=== PATIENT | male | born 1955 | race Caucasian/White ===

== ENCOUNTER → 2019-06-20 | Outpatient (REF) | payer BC ==
[2019-06-20 17:13] LABS: ALBUMIN 3.9 GM/DL (3.2-5.2); ALT/SGPT 27 U/L (12-78); BILIRUBIN,TOTAL 1.5 MG/DL (0.2-1.0); BLOOD UREA NITROGEN 7 MG/DL (7-18); CALCIUM LEVEL 9.4 MG/DL (8.8-10.2); CARBON DIOXIDE LEVEL 31 MEQ/L (21-32); CHLORIDE LEVEL 92 MEQ/L (98-107); CREATININE FOR GFR 0.76 MG/DL (0.70-1.30); GLOMERULAR FILTRATION RATE > 60.0 (>49); GLUCOSE, FASTING 106 MG/DL (70-100); POTASSIUM SERUM 4.3 MEQ/L (3.5-5.1); SODIUM LEVEL 130 MEQ/L (136-145); TOTAL PROTEIN 7.7 GM/DL (6.4-8.2)
[2019-06-20 17:22] LABS: BASO % 0.8 % (0.0-1.0); EOS # 0.2 10^3/uL (0.0-0.5); HEMATOCRIT 33.3 % (42.0-52.0); HEMOGLOBIN 11.8 g/dl (13.5-17.5); LYMPH # 1.2 10^3/uL (1.5-5.0); LYMPH % 23.2 % (24.0-44.0); MEAN CORPUSCULAR HEMOGLOBIN 34.9 pg (27.0-33.0); MEAN CORPUSCULAR HGB CONC 35.4 g/dl (32.0-36.5); MEAN CORPUSCULAR VOLUME 98.5 fl (80.0-96.0); MONO # 0.8 10^3/uL (0.0-0.8); MONO % 15.6 % (0.0-5.0); NEUTROPHILS # 2.9 10^3/uL (1.5-8.5); PLATELET COUNT, AUTOMATED 240 10^3/uL (150-450); RED BLOOD COUNT 3.38 10^6/uL (4.30-6.10); WHITE BLOOD COUNT 5.1 10^3/uL (4.0-10.0)
== END ==
LOC: M SFHCCLAY 11:03
PROVIDERS: ATTEND Family Medicine
DX: E87.1 Hypo-osmolality and hyponatremia (principal)

== ENCOUNTER → 2019-11-13 | Outpatient (CLI) | payer MEDICARE, BC ==
--- NOTE | 2019-11-13 14:44 | REP ---
Right ribs for views: There is a nondisplaced fracture of the posterior arch of the right tenth rib. PA chest: There are no comparisons. There is no pneumothorax, hemothorax or pulmonary contusion. There are numerous small round calcified nodules compatible with granulomas disease. Lung frye otherwise clear. Cardiac size is normal. The bassem, mediastinum, skeletal structures are unremarkable. Impression: Granulomatous disease, otherwise negative PA chest. Electronically Signed by Hossein Galo MD 11/13/2019 02:35 P
== END ==
LOC: M WUC 14:12
PROVIDERS: ATTEND Physician Assistant
DX: S20.221A Contusion of right back wall of thorax, initial encounter (principal); X58.XXXA Exposure to other specified factors, initial encounter; Y92.89 Other specified places as the place of occurrence of the external cause; Y93.9 Activity, unspecified; Y99.9 Unspecified external cause status

== ENCOUNTER → 2020-05-31 | Outpatient (CLI) | payer MEDICARE, BC ==
[2020-05-31 10:41] LABS: BASO % 0.6 % (0.0-1.0); EOS # 0.1 10^3/uL (0.0-0.5); EOS % 1.4 % (0.0-3.0); HEMATOCRIT 39.5 % (42.0-52.0); LYMPH % 13.2 % (24.0-44.0); MEAN CORPUSCULAR HEMOGLOBIN 33.5 pg (27.0-33.0); MEAN CORPUSCULAR HGB CONC 35.4 g/dl (32.0-36.5); MEAN CORPUSCULAR VOLUME 94.5 fl (80.0-96.0); MONO % 14.2 % (0.0-5.0); NEUTROPHILS % 69.9 % (36.0-66.0); PLATELET COUNT, AUTOMATED 190 10^3/uL (150-450); RED BLOOD COUNT 4.18 10^6/uL (4.30-6.10); WHITE BLOOD COUNT 7.2 10^3/uL (4.0-10.0)
[2020-05-31 11:11] LABS: ALBUMIN 3.9 GM/DL (3.2-5.2); ALT/SGPT 20 U/L (12-78); BILIRUBIN,TOTAL 1.2 MG/DL (0.2-1.0); BLOOD UREA NITROGEN 8 MG/DL (7-18); CALCIUM LEVEL 9.1 MG/DL (8.8-10.2); CARBON DIOXIDE LEVEL 31 MEQ/L (21-32); CHLORIDE LEVEL 92 MEQ/L (98-107); CREATININE FOR GFR 0.86 MG/DL (0.70-1.30); GLOMERULAR FILTRATION RATE > 60.0 (>49); GLUCOSE, FASTING 116 MG/DL (70-100); MAGNESIUM LEVEL 2.1 MG/DL (1.8-2.4); POTASSIUM SERUM 4.6 MEQ/L (3.5-5.1); SODIUM LEVEL 127 MEQ/L (136-145); TOTAL PROTEIN 8.1 GM/DL (6.4-8.2)
== END ==
LOC: M WUC 09:31
PROVIDERS: ATTEND Physician Assistant
DX: R42 Dizziness and giddiness (principal)

== ENCOUNTER → 2020-08-09 | Outpatient (REF) | payer MEDICARE, BC ==
[2020-08-09 16:37] LABS: BLOOD UREA NITROGEN 8 MG/DL (7-18); CALCIUM LEVEL 9.1 MG/DL (8.8-10.2); CARBON DIOXIDE LEVEL 30 MEQ/L (21-32); CHLORIDE LEVEL 91 MEQ/L (98-107); GLOMERULAR FILTRATION RATE > 60.0 (>49); GLUCOSE, FASTING 97 MG/DL (70-100); POTASSIUM SERUM 4.3 MEQ/L (3.5-5.1); SODIUM LEVEL 128 MEQ/L (136-145)
== END ==
LOC: M SFHCCLAY 09:19
PROVIDERS: ATTEND Family Medicine
DX: I11.9 Hypertensive heart disease without heart failure (principal); E87.1 Hypo-osmolality and hyponatremia
CPT/HCPCS: 80048; G0463

== ENCOUNTER 2023-03-06 20:10 | Inpatient (IN) | payer MEDICARE, BC ==
[~2023-03-06] VITALS: Ht 180.3 cm; Wt 83.7 kg
[2023-03-06] MEDS ORDERED: ASPI81TA26 PO (20:23)
[2023-03-06] MEDS ORDERED: METO50TA7 PO (20:23)
[2023-03-06] MEDS ORDERED: mens multivitamin PO (20:23)
[2023-03-06 22:09] LABS: BASO # 0.1 10^3/uL (0.0-0.2); BASO % 0.8 % (0.0-1.0); EOS # 0.1 10^3/uL (0.0-0.5); EOS % 1.9 % (0.0-3.0); HEMATOCRIT 37.6 % (42.0-52.0); HEMOGLOBIN 13.9 g/dl (13.5-17.5); LYMPH % 13.4 % (24.0-44.0); MEAN CORPUSCULAR VOLUME 94.7 fl (80.0-96.0); MONO % 13.1 % (2.0-8.0); NEUTROPHILS # 5.1 10^3/uL (1.5-8.5); NEUTROPHILS % 69.8 % (36.0-66.0); PLATELET COUNT, AUTOMATED 168 10^3/uL (150-450); RED BLOOD COUNT 3.97 10^6/uL (4.30-6.10); WHITE BLOOD COUNT 7.3 10^3/uL (4.0-10.0)
[2023-03-06] MEDS ORDERED: METOPROLOL TART 50 MG TAB PO ONE (22:10)
[2023-03-06 22:20] LABS: PROTHROMBIN TIME 13.4 SECONDS (12.5-14.5)
[2023-03-06 22:21] LABS: PARTIAL THROMBOPLASTIN TIME 33.9 SECONDS (24.8-34.2)
[2023-03-06 22:31] LABS: LIPASE 31 U/L (12-53)
[2023-03-06 22:32] LABS: ETHYL ALCOHOL (ETHANOL) 0.092 % (0.000-0.010)
[2023-03-06 22:34] LABS: ALBUMIN 3.7 G/DL (3.2-5.2); ALKALINE PHOSPHATASE 124 U/L (46-116); ALT/SGPT 14 U/L (7.0-40); AST/SGOT 20 U/L (<34); BILIRUBIN,DIRECT 0.4 MG/DL (<0.4); BILIRUBIN,TOTAL 1.2 MG/DL (0.3-1.2); BLOOD UREA NITROGEN 8 MG/DL (9-23); CALCIUM LEVEL 8.7 MG/DL (8.3-10.6); CARBON DIOXIDE LEVEL 28 MMOL/L (20-31); CHLORIDE LEVEL 89 MMOL/L (98-107); CREATININE FOR GFR 0.69 MG/DL (0.70-1.30); GLOMERULAR FILTRATION RATE > 60.0 (>49); GLUCOSE, FASTING 111 MG/DL (74-106); POTASSIUM SERUM 3.5 MMOL/L (3.5-5.1); SODIUM LEVEL 125 MMOL/L (136-145); TOTAL PROTEIN 7.1 G/DL (5.7-8.2)
[2023-03-06 22:43] LABS: RSV AMPLIFICATION NEGATIVE (NEGATIVE)
[2023-03-06] MEDS ORDERED: ASPI-161 PO (23:07)
[2023-03-06] MEDS ORDERED: HOME MED LIST COMPLETE! XX SCH (23:10)
[2023-03-06] MEDS ORDERED: LORazepam 2 MG TAB PO PRN (23:40)
[2023-03-07] VITALS (7 sets, daily range): BP systolic 156–178; BP diastolic 62–102
[2023-03-07] MEDS: THIAMINE 100 MG TAB PO SCH ×3 (00:31→20:41)
[2023-03-07] MEDS: PANTOPRAZOLE SODIUM 40 MG in D5W 50 ML IV SCH ×5 (00:31→20:41)
[2023-03-07] MEDS: NS 1,000 ML IV SCH ×2 (00:32→06:20)
[2023-03-07 03:09] LABS: HEMATOCRIT 36.3 % (42.0-52.0); HEMOGLOBIN 13.3 g/dl (13.5-17.5); MEAN CORPUSCULAR HEMOGLOBIN 35.2 pg (27.0-33.0); MEAN CORPUSCULAR HGB CONC 36.6 g/dl (32.0-36.5); PLATELET COUNT, AUTOMATED 177 10^3/uL (150-450); RED BLOOD COUNT 3.78 10^6/uL (4.30-6.10); WHITE BLOOD COUNT 7.5 10^3/uL (4.0-10.0)
[2023-03-07 06:21] LABS: HEMATOCRIT 34.5 % (42.0-52.0); HEMOGLOBIN 12.6 g/dl (13.5-17.5); MEAN CORPUSCULAR HEMOGLOBIN 35.1 pg (27.0-33.0); MEAN CORPUSCULAR HGB CONC 36.5 g/dl (32.0-36.5); MEAN CORPUSCULAR VOLUME 96.1 fl (80.0-96.0); PLATELET COUNT, AUTOMATED 156 10^3/uL (150-450); RED BLOOD COUNT 3.59 10^6/uL (4.30-6.10); WHITE BLOOD COUNT 7.6 10^3/uL (4.0-10.0)
[2023-03-07 06:45] LABS: ALBUMIN 3.5 G/DL (3.2-5.2); ALKALINE PHOSPHATASE 118 U/L (46-116); ALT/SGPT 12 U/L (7.0-40); AST/SGOT 17 U/L (<34); BILIRUBIN,TOTAL 1.1 MG/DL (0.3-1.2); BLOOD UREA NITROGEN 6 MG/DL (9-23); CALCIUM LEVEL 7.8 MG/DL (8.3-10.6); CARBON DIOXIDE LEVEL 29 MMOL/L (20-31); CHLORIDE LEVEL 95 MMOL/L (98-107); CREATININE FOR GFR 0.71 MG/DL (0.70-1.30); GLOMERULAR FILTRATION RATE > 60.0 (>49); GLUCOSE, FASTING 100 MG/DL (74-106); POTASSIUM SERUM 4.4 MMOL/L (3.5-5.1); SODIUM LEVEL 130 MMOL/L (136-145); TOTAL PROTEIN 6.5 G/DL (5.7-8.2)
[2023-03-07] MEDS: FOLIC ACID 1MG TAB PO SCH (08:30)
[2023-03-07] MEDS: MULTIVITAMINS/MINERALS THERAP 1 TAB PO SCH (08:30)
[2023-03-07] MEDS: METOPROLOL TART 50 MG TAB PO SCH ×2 (08:31→20:41)
[2023-03-07 10:23] LABS: HEMATOCRIT 33.3 % (42.0-52.0); HEMOGLOBIN 12.1 g/dl (13.5-17.5); MEAN CORPUSCULAR HGB CONC 36.3 g/dl (32.0-36.5); MEAN CORPUSCULAR VOLUME 96.2 fl (80.0-96.0); PLATELET COUNT, AUTOMATED 158 10^3/uL (150-450); RED BLOOD COUNT 3.46 10^6/uL (4.30-6.10); WHITE BLOOD COUNT 6.9 10^3/uL (4.0-10.0)
[2023-03-07] MEDS ORDERED: GOLYTELY SOLN 4000 ML BTL PO ONE (12:00)
[2023-03-07 13:43] LABS: HEMATOCRIT 38.3 % (42.0-52.0); HEMOGLOBIN 13.8 g/dl (13.5-17.5); MEAN CORPUSCULAR HEMOGLOBIN 34.9 pg (27.0-33.0); PLATELET COUNT, AUTOMATED 166 10^3/uL (150-450); RED BLOOD COUNT 3.95 10^6/uL (4.30-6.10)
[2023-03-07 18:33] LABS: HEMATOCRIT 37.5 % (42.0-52.0); HEMOGLOBIN 13.5 g/dl (13.5-17.5); MEAN CORPUSCULAR HEMOGLOBIN 34.6 pg (27.0-33.0); MEAN CORPUSCULAR VOLUME 96.2 fl (80.0-96.0); PLATELET COUNT, AUTOMATED 172 10^3/uL (150-450)
[2023-03-07 22:38] LABS: HEMATOCRIT 32.3 % (42.0-52.0); HEMOGLOBIN 11.8 g/dl (13.5-17.5); MEAN CORPUSCULAR HEMOGLOBIN 34.9 pg (27.0-33.0); MEAN CORPUSCULAR HGB CONC 36.5 g/dl (32.0-36.5); MEAN CORPUSCULAR VOLUME 95.6 fl (80.0-96.0); PLATELET COUNT, AUTOMATED 159 10^3/uL (150-450); RED BLOOD COUNT 3.38 10^6/uL (4.30-6.10); WHITE BLOOD COUNT 8.6 10^3/uL (4.0-10.0)
[2023-03-08] MEDS: PANTOPRAZOLE SODIUM 40 MG in D5W 50 ML IV SCH ×3 (01:16→10:19)
[2023-03-08 02:46] LABS: BASO # 0.1 10^3/uL (0.0-0.2); BASO % 0.7 % (0.0-1.0); EOS # 0.2 10^3/uL (0.0-0.5); EOS % 2.1 % (0.0-3.0); HEMATOCRIT 32.5 % (42.0-52.0); HEMOGLOBIN 11.8 g/dl (13.5-17.5); LYMPH # 1.2 10^3/uL (1.5-5.0); LYMPH % 13.6 % (24.0-44.0); MEAN CORPUSCULAR HEMOGLOBIN 34.8 pg (27.0-33.0); MEAN CORPUSCULAR HGB CONC 36.3 g/dl (32.0-36.5); MEAN CORPUSCULAR VOLUME 95.9 fl (80.0-96.0); MONO # 1.1 10^3/uL (0.0-0.8); MONO % 12.5 % (2.0-8.0); NEUTROPHILS % 70.5 % (36.0-66.0); PLATELET COUNT, AUTOMATED 139 10^3/uL (150-450); RED BLOOD COUNT 3.39 10^6/uL (4.30-6.10); WHITE BLOOD COUNT 8.5 10^3/uL (4.0-10.0)
[2023-03-08 03:11] LABS: ALBUMIN 3.4 G/DL (3.2-5.2); ALKALINE PHOSPHATASE 104 U/L (46-116); ALT/SGPT 12 U/L (7.0-40); AST/SGOT 18 U/L (<34); BILIRUBIN,TOTAL 1.5 MG/DL (0.3-1.2); BLOOD UREA NITROGEN < 5 MG/DL (9-23); CALCIUM LEVEL 7.5 MG/DL (8.3-10.6); CARBON DIOXIDE LEVEL 29 MMOL/L (20-31); CHLORIDE LEVEL 96 MMOL/L (98-107); CREATININE FOR GFR 0.75 MG/DL (0.70-1.30); GLOMERULAR FILTRATION RATE > 60.0 (>49); GLUCOSE, FASTING 109 MG/DL (74-106); MAGNESIUM LEVEL 1.5 MG/DL (1.8-2.4); POTASSIUM SERUM 3.5 MMOL/L (3.5-5.1); SODIUM LEVEL 131 MMOL/L (136-145); TOTAL PROTEIN 6.2 G/DL (5.7-8.2)
[2023-03-08 05:59] VITALS: BP 182/90
[2023-03-08 06:00] VITALS: BP 182/90
[2023-03-08] MEDS ORDERED: **hydrALAZINE HCL** 25 MG TAB PO ONE (06:00)
[2023-03-08 06:07] VITALS: BP 182/90
[2023-03-08] MEDS ORDERED: LR 1,000 ML IV SCH (07:10)
[2023-03-08] MEDS ORDERED: LIDOCAINE 2% 100MG/5ML SDV (FOR ANES.) As Ordered ONE (07:43)
[2023-03-08] MEDS ORDERED: propofoL 200 MG/20 ML VIAL As Ordered ONE ×2 (07:43→08:14)
[2023-03-08] MEDS ORDERED: chlordiazePOXIDE 25 MG CAP PO SCH (09:00)
[2023-03-08] MEDS ORDERED: BACITRACIN OINTMENT 30GM TUBE TOP SCH (09:00)
[2023-03-08 10:00] VITALS: BP 158/92
[2023-03-08] MEDS: METOPROLOL TART 50 MG TAB PO SCH (10:00)
[2023-03-08 10:13] LABS: HEMATOCRIT 33.9 % (42.0-52.0); HEMOGLOBIN 12.3 g/dl (13.5-17.5); MEAN CORPUSCULAR HEMOGLOBIN 35.2 pg (27.0-33.0); MEAN CORPUSCULAR HGB CONC 36.3 g/dl (32.0-36.5); MEAN CORPUSCULAR VOLUME 97.1 fl (80.0-96.0); PLATELET COUNT, AUTOMATED 150 10^3/uL (150-450); RED BLOOD COUNT 3.49 10^6/uL (4.30-6.10); WHITE BLOOD COUNT 8.1 10^3/uL (4.0-10.0)
[2023-03-08] MEDS: THIAMINE 100 MG TAB PO SCH (10:20)
[2023-03-08] MEDS: MULTIVITAMINS/MINERALS THERAP 1 TAB PO SCH (10:20)
[2023-03-08] MEDS: FOLIC ACID 1MG TAB PO SCH (10:20)
[2023-03-08] MEDS: MAG SULF 1GM/100ML (MAG RUN) 1 GM in IV 1 EA IV SCH ×5 (10:34→14:27)
[2023-03-08 10:42] LABS: CARCINOEMBRYONIC ANTIGEN < 2.0 NG/ML (<2.5)
[2023-03-08 10:57] LABS: CA19-9 TUMOR MARKER,CARBOHYDRA 13.1 U/ML (<35.0)
[2023-03-08] MEDS ORDERED: ISOVUE-370 76% 100ML VIAL As Ordered ONE (11:33)
[2023-03-08] MEDS ORDERED: BACI50OI TOP (11:54)
[2023-03-08] MEDS ORDERED: MAGN400T2 PO (13:39)
[2023-03-08 14:00] VITALS: BP 189/90
[2023-03-08 14:21] LABS: HEMATOCRIT 37.3 % (42.0-52.0); HEMOGLOBIN 13.3 g/dl (13.5-17.5); MEAN CORPUSCULAR HGB CONC 35.7 g/dl (32.0-36.5); MEAN CORPUSCULAR VOLUME 98.2 fl (80.0-96.0); PLATELET COUNT, AUTOMATED 150 10^3/uL (150-450); WHITE BLOOD COUNT 9.9 10^3/uL (4.0-10.0)
[2023-03-08] MEDS ORDERED: MAG SULF 1GM/100ML (MAG RUN) 1 GM in IV 1 EA IV SCH (15:00)
== END 2023-03-08 16:20 | disposition home or self-care (01) | DRG 375 ==
LOC: M ED 20:10 → M ED INP 23:31 → M PCU 03-07 03:56 → M MS5PR 03-07 22:23
PROVIDERS: ADMIT Family Medicine; ATTEND Internal Medicine
PROC: 0DBN8ZX Excision of Sigmoid Colon, Via Natural or Artificial Opening Endoscopic, Diagnostic (ICD-10-PCS; 2023-03-08)
PROC: 0W3P8ZZ Control Bleeding in Gastrointestinal Tract, Via Natural or Artificial Opening Endoscopic (ICD-10-PCS; 2023-03-08)
PROC: 0DBL8ZX Excision of Transverse Colon, Via Natural or Artificial Opening Endoscopic, Diagnostic (ICD-10-PCS; principal; 2023-03-08 08:00)
DX: D49.0 Neoplasm of unspecified behavior of digestive system (principal); K62.5 Hemorrhage of anus and rectum; K57.30 Diverticulosis of large intestine without perforation or abscess without bleeding; D12.8 Benign neoplasm of rectum; D12.3 Benign neoplasm of transverse colon; I10 Essential (primary) hypertension; F10.20 Alcohol dependence, uncomplicated; Z79.82 Long term (current) use of aspirin; Z79.899 Other long term (current) drug therapy